=== PATIENT | female | born 1990 | race African-American/Black ===

== ENCOUNTER 2022-09-05 15:19 | Emergency (ER) | payer OTHER, SELFPAY ==
--- NOTE | ~2022-09-05 | XR_ITS ---
XR foot LT min 3V 09/05/2022 16:55 INDICATION: Left foot pain. Possible foreign body. PROCEDURE: 4 views left foot COMPARISON: No prior studies for comparison. FINDINGS: Fracture, dislocation or subluxation is not identified. The soft tissues appear within norm al limits. No foreign bodies are identified. There is a small degenerative calcaneal enthesophyte. IMPRESSION: 1: NO ACUTE BONE OR JOINT ABNORMALITY IDENTIFIED. Reviewed, dictated and finalized at location [facility]
[2022-09-05 15:55] VITALS: BP 154/94; PULSE 72; RESP 16; TEMP 36.4; O2SAT 100
--- NOTE | 2022-09-05 17:09 | ED.LOWEXIN ---
HPI - Extremity Injury (Lower) General Chief Complaint: Extremity Injury, Lower Stated Complaint: L foot pain Time Seen by Provider: 09/05/22 15:57 Source: patient Mode of arrival: ambulatory Limitations: no limitations History of Present Illness HPI Narrative: 31 years old -[place] female presents with pain at the left heel, burning, feels like a lump or knot under the skin at that area started 1 week ago. She denies any trauma, fever, chills or new shoes for long hours standing or walking. Patient does not have a job Related Data Allergies Allergy/AdvReac Type Severity Reaction Status Date / Time morphine Allergy Swelling Verified 09/05/22 15:58 acetaminophen [From Tylenol] AdvReac Itching Verified 09/05/22 15:59 Review of Systems Review of Systems: All systems reviewed & are unremarkable except as noted in HPI and below Exam Narrative: General appearance: Well-developed, well-nourished Skin: Normal color Chest and respiratory: Airway patent, no respiratory distress, no accessory muscle use Heart: Regular rate/rhythm Abdomen: Soft, nontender, no organomegaly, quiet bowel sounds Vascular: Normal peripheral pulses, normal capillary refill. Musculoskeletal: Normal range of motion, nontender back, left foot showed diffuse tenderness at the bottom of left heel, and not like feeling, no erythema, no warmth, no discharge. Neurologic: Alert and oriented ?3, ABSTRACT SEARCHER is normal as tested, no gross motor deficit Course Course Emergency Course: Foreign body, skin infection is my concern. Vital Signs Vital signs: Vital Signs Temperature 36.4 C 09/05/22 15:55 Pulse Rate 72 09/05/22 15:55 Respiratory Rate 16 09/05/22 15:55 Blood Pressure 154/94 H 09/05/22 15:55 Pulse Oximetry 100 09/05/22 15:55 Oxygen Delivery Room Air 09/05/22 15:55 Temperature 36.4 C 09/05/22 15:55 Pulse Rate 72 09/05/22 15:55 Respiratory Rate 16 09/05/22 15:55 Blood Pressure 154/94 H 09/05/22 15:55 Pulse Oximetry 100 09/05/22 15:55 Oxygen Delivery Room Air 09/05/22 15:55 MDM - Extremity Injury (Lower) Differential Diagnosis Differential diagnosis: Likely other (Skin infection, foreign body, bruises,) Imaging Data Radiologist's impression: Impressions Foot X-Ray 09/05/22 16:57 IMPRESSION: 1: NO ACUTE BONE OR JOINT ABNORMALITY IDENTIFIED. Critical Care Time Critical Care Time Critical Care Time: No Discharge Plan Discharge Clinical Impression: Acute pain of left foot Patient Disposition: Home, Self-Care Condition: Stable Instructions: Antibiotic Form Additional Instructions: Return if symptoms are worsening , call your family physician/cut press operator for appointment, take Tylenol as as needed for aches and pain, continue home medications., keep left foot elevated,, take ibuprofen 600 every 6 hours, keep weight off the left foot Prescriptions: New cephalexin 500 mg tablet 500 mg PO Q8H 7 Days Qty: 21 0RF Follow-up/Referrals: Akash Piedra DPM [Physician] - 09/08/22 PHYSICIAN NOT ON STAFF,NONSTAFF [Primary Care Provider] -
== END 2022-09-05 17:33 | disposition home or self-care (01) ==
PROVIDERS: Emergency Provider Emergency Medicine
DX: M79.672 Pain in left foot (principal)
CPT/HCPCS: 73630; 99283